=== PATIENT | female | born 1950 | race Caucasian/White ===

== ENCOUNTER 2019-11-08 01:14 | Emergency (ER) | payer MEDICARE ==
[~2019-11-08] VITALS: Ht 162.6 cm; Wt 74.1 kg
[~2019-11-08 01:14] MED LIST: ASPI-1198 PO; DESL5TAB6 PO; LISI1TAB13 PO; PRAV40TA
[2019-11-08] MEDS ORDERED: ACETAMINOPHEN 500 MG TABLET PO ONE (01:45)
[2019-11-08] MEDS ORDERED: PERTUSS(ACELL),DIPH,TET VAC/PF 0.5 ML VIAL IM ONE (01:45)
[2019-11-08] MEDS ORDERED: LIDOCAINE 2%/EPI 1:200,000/PF 20 ML VIAL INJ ONE (03:15)
[2019-11-08] MEDS ORDERED: BACITRACIN 0.9 GM PACKET OINTMENT TP ONE (04:00)
[2019-11-08] MEDS ORDERED: KETOROLAC TROMETHAMINE 30 MG/ML VIAL IM ONE (04:45)
[2019-11-08 04:59] VITALS: BP 161/77
== END 2019-11-08 05:00 | disposition home or self-care (01) ==
LOC: EMS 01:14
DX: S06.0X1A Concussion with loss of consciousness of 30 minutes or less, initial encounter (principal); S01.511A Laceration without foreign body of lip, initial encounter; S80.01XA Contusion of right knee, initial encounter; I10 Essential (primary) hypertension; E78.00 Pure hypercholesterolemia, unspecified; Z79.82 Long term (current) use of aspirin; W01.0XXA Fall on same level from slipping, tripping and stumbling without subsequent striking against object, initial encounter; Y93.89 Activity, other specified; Y92.89 Other specified places as the place of occurrence of the external cause; Y99.8 Other external cause status
CPT/HCPCS: 40650; 70450; 70486; 72125; 73564; 90471; 90715; 96372; 99285; J1885

== ENCOUNTER 2019-11-10 13:46 | Emergency (ER) | payer MEDICARE ==
[~2019-11-10] VITALS: Ht 162.6 cm; Wt 74.1 kg
[~2019-11-10 13:46] MED LIST changes: -DESL5TAB6 PO; -LISI1TAB13 PO; -PRAV40TA
[2019-11-10 15:00] VITALS: BP 142/75
== END 2019-11-10 15:11 | disposition home or self-care (01) ==
LOC: EMS 13:47
DX: S01.511D Laceration without foreign body of lip, subsequent encounter (principal); I10 Essential (primary) hypertension; R55 Syncope and collapse; E78.00 Pure hypercholesterolemia, unspecified; T46.5X5A Adverse effect of other antihypertensive drugs, initial encounter; Z79.82 Long term (current) use of aspirin; X58.XXXD Exposure to other specified factors, subsequent encounter; Y92.89 Other specified places as the place of occurrence of the external cause

== ENCOUNTER 2019-11-14 12:24 | Emergency (ER) | payer MEDICARE ==
[~2019-11-14] VITALS: Ht 162.6 cm; Wt 74.1 kg
[2019-11-14 12:59] VITALS: BP 170/73
== END 2019-11-14 14:19 | disposition home or self-care (01) ==
LOC: EMS 12:27
DX: S01.81XD Laceration without foreign body of other part of head, subsequent encounter (principal); X58.XXXD Exposure to other specified factors, subsequent encounter